=== PATIENT | female | born 1980 | race Caucasian/White ===

== ENCOUNTER 2023-03-04 09:01 | Emergency (ER) | payer OTHER ==
[~2023-03-04] VITALS: Ht 162.6 cm; Wt 89.4 kg
[~2023-03-04 09:01] MED LIST: Black Cohosh40 M1 PO; CEPH500 PO; CODGUAEL PO; CYCL10 PO; DULO60; FOLI1 PO; GABA300; MULVITMINE PO; MUPI2TC TOP; NIAC500ER PO; OXYACE5T PO; Prednisone20 MG PO; Silvadene20 GM TOP; Synthroid50 MCG; Ultram50 MG PO
[2023-03-04] MEDS ORDERED: HYDCHL25 PO (09:24)
[2023-03-04] MEDS ORDERED: BACLOFEN10 M4 PO (09:25)
[2023-03-04] MEDS ORDERED: ATORVASTATIN CA20 MG PO (09:25)
[2023-03-04] MEDS ORDERED: TOPI50 PO (09:26)
[2023-03-04] MEDS ORDERED: QUETIAPINE FUMA25 MG PO (09:26)
[2023-03-04] MEDS ORDERED: SYNTHROID137 MCG PO (09:26)
[2023-03-04] MEDS ORDERED: AMIT50 PO (09:26)
[2023-03-04 09:40] LABS: BASOPHILS ABSOLUTE AUTO 0.07 K/mm3 (0.00-0.23); BASOPHILS PERCENT AUTO 1 % (0-2); EOSINOPHILS ABSOLUTE AUTO 0.16 K/mm3 (0.00-0.68); EOSINOPHILS PERCENT AUTO 2 % (0-6); Hematocrit 48.3 % (33.0-51.0); Hemoglobin 16.3 g/dL (11.5-16.0); IMMATURE GRAN ABSOLUTE AUTO 0.02 K/mm3 (0.00-0.10); IMMATURE GRAN PERCENT AUTO 0 % (0-1); LYMPHOCYTES ABSOLUTE AUTO 2.02 K/mm3 (0.84-5.20); LYMPHOCYTES PERCENT AUTO 28 % (21-46); MONOCYTES ABSOLUTE AUTO 0.42 K/mm3 (0.16-1.47); MONOCYTES PERCENT AUTO 6 % (4-13); Mean Corpuscular HGB 31.8 pg (26.0-34.0); Mean Corpuscular HGB Conc 33.7 g/dL (31.5-36.5); Mean Corpuscular Volume 94 fL (80-100); Mean Platelet Volume 10.6 fL (9.1-12.4); NEUTROPHILS ABSOLUTE AUTO 4.57 K/mm3 (1.96-9.15); NEUTROPHILS PERCENT AUTO 63 % (41-73); Platelet Count 289 K/mm3 (150-400); RDW Coefficient Variation 13.1 % (11.7-14.2); Red Blood Cell Count 5.13 M/mm3 (3.80-5.20); White Blood Cell Count 7.26 K/mm3 (4.00-11.30)
[2023-03-04 09:53] LABS: Albumin/Globulin Ratio 0.9 (0.8-1.8); Bilirubin, Total 0.8 mg/dL (0.1-1.0); Calcium, Blood 8.8 mg/dL (8.5-10.1); Creatinine, Blood 0.83 mg/dL (0.40-1.00); Globulin, Blood 4.3 g/dL (2.2-4.0); Potassium, Blood 3.1 mmol/L (3.5-5.5); Total Protein, Blood 8.3 g/dL (6.4-8.2)
[2023-03-04 12:30] VITALS: BP 152/104
== END 2023-03-04 12:52 | disposition home or self-care (01) ==
LOC: ER 09:01
PROVIDERS: Emergency Medicine
DX: I10 Essential (primary) hypertension (principal); E78.5 Hyperlipidemia, unspecified; E03.9 Hypothyroidism, unspecified; Z88.5 Allergy status to narcotic agent; Z79.899 Other long term (current) drug therapy; Z79.890 Hormone replacement therapy; Z87.891 Personal history of nicotine dependence
CPT/HCPCS: 71045; 80053; 83880; 84484; 85025; 93005; 93010; 99285-25

== ENCOUNTER 2025-01-14 08:32 | Day surgery (SDC) | payer OTHER ==
[~2025-01-14] VITALS: Ht 160 cm; Wt 95.2 kg
[2025-01-14] VITALS (7 sets, daily range): BP systolic 106–141; BP diastolic 71–85
[~2025-01-14 08:32] MED LIST changes: +AMIT50 PO; +ATORVASTATIN CA20 MG PO; +BACLOFEN10 M4 PO; +HYDCHL25 PO; +METF500 PO; +QUETIAPINE FUMA25 MG PO; +SYNTHROID137 MCG PO; +TOPI50 PO; +VENL75ER PO
[2025-01-14] MEDS ORDERED: FENO67 PO (08:43)
[2025-01-14] MEDS ORDERED: FERROUS FUMARA324 MG PO (08:43)
--- NOTE | 2025-01-14 09:19 | NUR ---
History, Chart, Medications and Allergies reviewed before start of procedure. Patient States Post-Procedure ride home has been arranged.
--- NOTE | 2025-01-14 09:27 | NUR ---
01/14/25 0927 Suellen Ledbetter CONFIRMED AND REVIEWED H&P, MEDCICATIONS, ALLERGIES, MEDICAL HISTORY, RESPIRATORY HISTORY, VITAL SIGNS, 3-LEAD EKG, CONSENTS, AND PHYSICIAN ORDERS. PATIENT CONFIRMS NPO STATUS AND AGREES WITH SCHEDULED PROCEDURE. MONITOR INTACT WITH CONTINUOUS PULSE OXIMETRY, CAPNOGRAPHY, 3-LEAD EKG, INTERMITTENT BP. SUPPLEMENTAL O2 TO BE TITRATED THROUGHOUT PROCEDURE TO MAINTAIN O2 SATURATION ABOVE 90%. PATIENT DETERMINED TO BE ASA APPROPRIATE FOR PROPOFOL SEDATION PRIOR TO START OF PROCEDURE BY DR. MARCELLO BANGURA SCOPE #[id number]
--- NOTE | 2025-01-14 09:54 | NUR ---
Discharge instructions reviewed with patient. Patient verbalizes understanding. Copy given to patient to take home. Patient States Post-Procedure ride home has been arranged. Discharged via wheelchair to private car for ride home.
== END 2025-01-14 09:50 | disposition home or self-care (01) ==
LOC: ORSCMMR 08:32 → ORD 09:30 → ORSCMMR 09:50
PROVIDERS: Internal Medicine Gastroenterology
PROC: 0DJD8ZZ Inspection of Lower Intestinal Tract, Via Natural or Artificial Opening Endoscopic (ICD-10-PCS; principal; 2025-01-14 09:30)
DX: Z12.11 Encounter for screening for malignant neoplasm of colon (principal); Z86.0100 Personal history of colon polyps, unspecified; E03.9 Hypothyroidism, unspecified; E11.9 Type 2 diabetes mellitus without complications; F32.A Depression, unspecified; E78.00 Pure hypercholesterolemia, unspecified; Z79.84 Long term (current) use of oral hypoglycemic drugs; Z79.899 Other long term (current) drug therapy
CPT/HCPCS: 82947; J2704; J7120